=== PATIENT | female | born 1955 | race Asian ===

== ENCOUNTER 2017-01-28 17:18 | Emergency (ER) | payer OTHER ==
--- NOTE | 2017-01-28 18:33 | ER Document Report ---
ED Medical Screen (RME) - General Stated Complaint: ABNORMAL LABS, DIZZY Time seen by provider: 18:31 Mode of Arrival: Ambulatory Information source: Patient Notes: 61-year-old female presents to ED for dizziness and low sodium. States she felt bad on Saturday when into the doctor on Saturday and her sodium was very low. She was sent home and told to drink a lot of Gatorade. On she was seen again at the doctor and her sodium was still low but better than the first time. No nausea and vomiting now just dizziness. I have greeted and performed a rapid initial assessment of this patient. A comprehensive ED assessment and evaluation of the patient, analysis of test results and completion of medical decision making process will be conducted by an additional ED providers. Physical Exam - Vital signs Vitals: Temp Pulse Resp BP Pulse Ox 98.2 F 76 20 176/72 H 99 01/28/17 18:27 01/28/17 18:27 01/28/17 18:27 01/28/17 18:27 01/28/17 18:27 Course - Vital Signs Vital signs: Temp Pulse Resp BP Pulse Ox 98.2 F 76 20 176/72 H 99 01/28/17 18:27 01/28/17 18:27 01/28/17 18:27 01/28/17 18:27 01/28/17 18:27
[2017-01-28 19:26] LABS: ABSOLUTE BASOPHILS # (AUTO) 0.1 10^3/uL (0.0-0.2); ABSOLUTE EOSINOPHILS # (AUTO) 0.1 10^3/uL (0.0-0.6); ABSOLUTE LYMPHOCYTES (AUTO) 2.1 10^3/uL (0.5-4.7); ABSOLUTE MONOCYTES (AUTO) 0.3 10^3/uL (0.1-1.4); ABSOLUTE NEUT (AUTO) 3.5 10^3/uL (1.7-8.2); BASOPHILS % (AUTO) 1.4 % (0-2); EOSINOPHILS % (AUTO) 1.8 % (0-6); HEMATOCRIT 37.1 % (36.0-47.0); HGB HCT DIFFERENCE 1.9; LYMPHOCYTES % (AUTO) 33.8 % (13-45); MEAN CORPUSCULAR HEMOGLOBIN 31.2 pg (27.0-33.4); MEAN CORPUSCULAR HGB CONC 35.2 g/dL (32.0-36.0); MEAN CORPUSCULAR VOLUME 89 fl (80-97); MONOCYTES % (AUTO) 5.7 % (3-13); RED BLOOD COUNT 4.18 10^6/uL (3.72-5.28); RED CELL DISTRIBUTION WIDTH 11.8 % (11.5-14.0); SEGMENTED NEUTROPHILS % (AUTO) 57.3 % (42-78); WHITE BLOOD COUNT 6.1 10^3/uL (4.0-10.5)
[2017-01-28 19:32] LABS: APPEARANCE,URINE CLEAR; BILIRUBIN,URINE NEGATIVE (NEGATIVE); GLUCOSE, URINE NEGATIVE (NEGATIVE); KETONES,URINE NEGATIVE (NEGATIVE); LEUKOCYTE ESTERASE,URINE TRACE (NEGATIVE); NITRITE,URINE NEGATIVE (NEGATIVE); PROTEIN,URINE NEGATIVE (NEGATIVE); URINE SPECIFIC GRAVITY 1.006; UROBILINOGEN,URINE NEGATIVE mg/dL (<2.0)
[2017-01-28 19:40] LABS: ALANINE AMINOTRANSFERASE 32 U/L (9-52); ALBUMIN 4.7 g/dL (3.5-5.0); ALKALINE PHOSPHATASE 75 U/L (38-126); ANION GAP 16 (5-19); ASPARTATE AMINO TRANSFERASE 27 U/L (14-36); BILIRUBIN,DIRECT 0.3 mg/dL (0.0-0.4); BILIRUBIN,TOTAL 0.8 mg/dL (0.2-1.3); BLOOD UREA NITROGEN 10 mg/dL (7-20); CALCIUM 9.9 mg/dL (8.4-10.2); CARBON DIOXIDE 25 mmol/L (22-30); CHLORIDE 95 mmol/L (98-107); CREATININE RESULT 0.47 mg/dL (0.52-1.25); GLUCOSE 136 mg/dL (75-110); POTASSIUM 3.3 mmol/L (3.6-5.0); SODIUM 136.4 mmol/L (137-145); TOTAL PROTEIN 7.9 g/dL (6.3-8.2)
[2017-01-29] MEDS ORDERED: NORMAL SALINE 1000 ML 1,000 ML IV ONE (00:37)
[2017-01-29] MEDS ORDERED: AMOXICILLIN TRIHYDRATE 500 MG CAPSULE PO ONE (01:24)
--- NOTE | 2017-01-29 01:27 | ER Document Report ---
ED General - General Chief Complaint: Dizziness Stated Complaint: ABNORMAL LABS, DIZZY Mode of Arrival: Ambulatory Notes: Patient is a 61-year-old female with past medical history of hypertension who presents with vertigo for the past 3 days. She was seen by her primary care physician and diagnosed as having hyponatremia. States she's been taking oral rehydration solutions but this has not significantly improved her symptoms. Nothing is known to worsen her symptoms. She denies any focal weakness or numbness. She has had similar symptoms in the past and she's had otitis media. Denies any headache, neck pain, fever, or altered mental status. TRAVEL OUTSIDE OF THE [place] IN LAST 30 DAYS: No - Related Data Allergies/Adverse Reactions: No Known Allergies Allergy (Unverified 01/28/17 18:33) Past Medical History - General Information source: Patient - Social History Smoking Status: Never Smoker Chew tobacco use (# tins/day): No Frequency of alcohol use: None Drug Abuse: None Lives with: Spouse/Significant other Family History: Reviewed & Not Pertinent Patient has suicidal ideation: No Patient has homicidal ideation: No - Past Medical History Cardiac Medical History: Reports: Hx Hypertension Endocrine Medical History: Reports: Hx Diabetes Mellitus Type 2 Renal/ Medical History: Denies: Hx Peritoneal Dialysis Review of Systems - Review of Systems Notes: Constitutional: Negative for fever. HENT: Negative for sore throat. Eyes: Negative for visual changes. Cardiovascular: Negative for chest pain. Respiratory: Negative for shortness of breath. Gastrointestinal: Negative for abdominal pain, vomiting or diarrhea. Genitourinary: Negative for dysuria. Musculoskeletal: Negative for back pain. Skin: Negative for rash. Neurological: Negative for headaches, weakness or numbness. Positive for vertigo 10 point ROS negative except as marked above and in HPI. Physical Exam - Vital signs Vitals: Temp Pulse Resp BP Pulse Ox 98.2 F 76 20 176/72 H 99 01/28/17 18:27 01/28/17 18:27 01/28/17 18:27 01/28/17 18:27 01/28/17 18:27 Interpretation: Hypertensive Notes: PHYSICAL EXAMINATION: GENERAL: Well-appearing, well-nourished and in no acute distress. HEAD: Atraumatic, normocephalic. EYES: Pupils equal round and reactive to light, extraocular movements intact, sclera anicteric, conjunctiva are normal. ENT: nares patent, oropharynx clear without exudates. Moist mucous membranes. TMs with purulent effusion and erythema bilaterally NECK: Normal range of motion, supple without lymphadenopathy LUNGS: Breath sounds clear to auscultation bilaterally and equal. No wheezes rales or rhonchi. HEART: Regular rate and rhythm without murmurs ABDOMEN: Soft, nontender, normoactive bowel sounds. No guarding, no rebound. No masses appreciated. EXTREMITIES: Normal range of motion, no pitting or edema. No cyanosis. NEUROLOGICAL: Face symmetric. Tongue protrudes midline. Extraocular motions intact. Pupils are 2 mm and equally reactive. Normal speech, normal gait. 5 out of 5 strength in both the distal and proximal upper and lower extremities bilaterally. Sensation is grossly intact throughout. Finger to nose testing normal. Pronator drift normal. PSYCH: Normal mood, normal affect. SKIN: Warm, Dry, normal turgor, no rashes or lesions noted. Course - Re-evaluation Re-evalutation: 01/29/17 01:24 Patient presents with concerns of hyponatremia which is no longer significantly present on repeat laboratories here in the emergency department today. Patient' s primary complaint is vertigo. This appears to be most consistent with patient having a bilateral otitis media on exam. Her stroke screen is negative. Cerebellar testing is normal. She is able to ambulate on heels and toes without any ataxia. Do not believe MRI imaging of the brain is indicated at this time. The remainder patient's labs are overall unremarkable. She was started on amoxicillin and will follow-up closely with her primary care physician. At this time will discharge with return precautions and follow-up recommendations. Verbal discharge instructions given a the bedside and opportunity for questions given. Medication warnings reviewed. Patient is in agreement with this plan and has verbalized understanding of return precautions and the need for primary care follow-up in the next 24-72 hours. - Vital Signs Vital signs: Temp Pulse Resp BP Pulse Ox 98.2 F 76 13 150/71 H 97 01/28/17 18:27 01/28/17 18:27 01/29/17 01:01 01/29/17 01:01 01/29/17 01:01 - Laboratory Result Diagrams: 01/28/17 18:50 01/28/17 18:50 Laboratory results interpreted by me: 0301/28/17 01/28/17 18:50 18:50 19:00 Sodium 136.4 L Potassium 3.3 L Chloride 95 L Creatinine 0.47 L Glucose 136 H Magnesium 1.5 L Ur Leukocyte Esterase TRACE H Discharge - Discharge Clinical Impression: Vertigo Bilateral otitis media Qualifiers: Otitis media type: suppurative Chronicity: acute Recurrence: not specified as recurrent Spontaneous tympanic membrane rupture: without spontaneous rupture Qualified Code(s): H66.003 - Acute suppurative otitis media without spontaneous rupture of ear drum, bilateral Condition: Good Disposition: HOME, SELF-CARE Additional Instructions: Your symptoms appear to be related to a bilateral ear infection. Please take the antibiotics as directed. Follow closely with your primary care doctor. Return for any difficulty speaking, walking, persistent vomiting, or any other symptoms that are worrisome to you. Prescriptions: Amoxicillin 1 tab PO TID #30 tab Forms: Return to Work Referrals: SLEIN HUSTON MD [Primary Care Provider] - Follow up in 3-5 days
[2017-01-29 01:46] VITALS: BP 150/71
== END 2017-01-29 01:45 | disposition home or self-care (01) ==
LOC: ER 17:18
DX: R42 Dizziness and giddiness (principal); H66.003 Acute suppurative otitis media without spontaneous rupture of ear drum, bilateral; I10 Essential (primary) hypertension; E11.9 Type 2 diabetes mellitus without complications
CPT/HCPCS: 36415; 80053; 81001; 83735; 85025; 99284